=== PATIENT | male | born 1950 | race Caucasian/White ===

== ENCOUNTER 2018-06-08 17:06 | Observation (INO) ==
[2018-06-08] MEDS ORDERED: Nitroglycerin 0.4 MG TAB.SUBL SL PRN (17:28)
--- NOTE | 2018-06-08 17:33 | Emergency Department Note ---
Disposition Clinical Impression: Chest pain Qualifiers: Chest pain type: unspecified Qualified Code(s): R07.9 - Chest pain, unspecified Disposition: Admitted As Inpatient Condition: Fair Referrals: Ana Laura Pelayo [Primary Care Provider] - Forms: ED Satisfaction Letter General Adult HPI - General Chief complaint: ED Chest Pain Stated complaint: CP Time Seen by Provider: 06/08/18 17:20 Source: patient, family Mode of arrival: ambulatory Limitations: no limitations Nursing Notes Reviewed: Yes Vital Signs Reviewed: Yes - History of Present Illness HPI Narrative: 68-year-old male with significant past medical history of coronary artery disease with 10 stents and open heart surgery currently on full dose aspirin presenting to the emergency department chief complaint of chest pain. Patient states chest pain started yesterday after he dug a hole in his yard. He took 2 nitroglycerin and it resolved. This morning he woke up and started having chest pain again. He called his tape recording machine operator who suggested he come to the emergency department for further evaluation. At this time patient describes a substernal pressure that radiates across his chest. Denies any nausea, vomiting or diaphoresis. Patient denies any recent illnesses or fevers. States he is also had increased shortness of breath over the past 2-3 days with these symptoms. Denies any productive cough or sputum production. Patient did take full dose aspirin today. Pain Scale: 0 - Related Data Home Medications Medication Instructions Recorded Confirmed Albuterol Sulfate [Ventolin Hfa] 2 puff IH Q6H PRN 01/20/18 06/08/18 Amlodipine Besylate 10 mg PO DAILY 01/20/18 06/08/18 Aspirin 325 mg PO DAILY 01/20/18 06/08/18 Atorvastatin Calcium 80 mg PO DAILY 01/20/18 06/08/18 Esomeprazole Magnesium [Nexium] 40 mg PO DAILY 01/20/18 06/08/18 Ranolazine [Ranexa] 500 mg PO BID 01/20/18 06/08/18 Tamsulosin HCl [Flomax] 0.4 mg PO DAILY 01/20/18 06/08/18 Carvedilol [Coreg] 6.25 mg PO BID 06/08/18 06/08/18 Allergies Allergy/AdvReac Type Severity Reaction Status Date / Time ezetimibe AdvReac See Verified 07/03/18 07:46 Comments All systems ED: reviewed and negative except as stated. Constitutional: Denies: fever, chills, weakness Eyes: Reports: as per HPI ENT ED: Reports: as per HPI Cardiovascular: Reports: chest pain, dyspnea on exertion. Denies: palpitations Respiratory: Reports: dyspnea. Denies: cough, wheezes, hemoptysis Gastrointestinal: Denies: abdominal pain, nausea, vomiting Genitourinary: Reports: as per HPI Musculoskeletal: Reports: as per HPI Integumentary: Reports: as per HPI Neurological: Denies: weakness, numbness, paresthesias Psychiatric: Reports: as per HPI Endocrine: Reports: as per HPI Hematological/Lymphatic: Reports: as per HPI Allergic/Immunologic: Reports: as per HPI Past Medical History - Past Medical History Attestation: Yes The following information was validated with the patient. Medical history: Reports: cancer, cardiomyopathy, coronary artery disease, hypertension Surgical history: Reports: coronary bypass (CABG), pacemaker/AICD Psychiatric history: Reports: no psych history - Social History Smoking Status: Former smoker Smokeless Tobacco Status: No Alcohol use: Reports: rarely Physical Exam - General Limitations: no limitations General appearance: alert, in no apparent distress - Head Head exam: atraumatic, normocephalic, normal inspection - Eye Eye exam: Present: normal appearance. Absent: scleral icterus, conjunctival injection - ENT ENT exam: normal exam, mucous membranes moist - Neck Neck exam: Present: normal inspection, full ROM. Absent: tenderness, meningismus - Chest Chest inspection: Present: normal inspection, symmetric chest wall rise. Absent: tenderness, rash - Respiratory Respiratory exam: Present: normal lung sounds bilaterally. Absent: respiratory distress, wheezes, stridor - Cardiovascular Cardiovascular exam: Present: regular rate, normal rhythm, normal heart sounds - Abdominal Exam Abdominal exam: Present: soft, Non-Tender. Absent: distention, guarding, rebound - Extremities Exam Extremities exam: Present: normal inspection, full ROM - Neurological Exam Neurological exam: Present: alert, oriented X3 - Psychiatric Psychiatric exam: Present: normal affect, normal mood - Skin Skin exam: Present: warm, intact Course Course Narrative: 68-year-old male presenting for chest pain. Significant history of cardiac disease. In the room patient still complaining of mild substernal chest pressure. He is alert and oriented 3 and hemodynamically stable. At this time we will perform a chest pain workup including chest x-ray, troponin and EKG. We will provide the patient with sublingual nitroglycerin. Disposition will be admission pending results. Patient agrees with this plan. - Reevaluation(s) Reevaluation #1: All patient's laboratory analysis benign. Patient remains chest pain-free without any intervention. He is alert and oriented 3 and hemodynamically stable. At this time will plan to admit him for further chest pain workup. Patient agrees with this plan. Spoke with the hospitalist on-call who agrees to accept the patient at this time. Vital Signs Temperature 97.5 F L 06/08/18 17:12 Pulse Rate 81 06/08/18 17:12 Respiratory Rate 16 06/08/18 17:12 Blood Pressure 118/72 06/08/18 17:12 O2 Sat by Pulse Oximetry 97 06/08/18 17:12 Temperature 97.5 F L 06/08/18 17:29 Pulse Rate 60 06/08/18 18:17 Respiratory Rate 16 06/08/18 18:17 Blood Pressure 125/73 06/08/18 18:17 O2 Sat by Pulse Oximetry 98 06/08/18 18:17 Oxygen Delivery Oxygen Delivery Room Air Medical Decision Making - Lab Data Result diagrams: 06/08/18 17:32 06/08/18 17:32 Lab Results 06/08/18 06/08/18 Range/Units 17:32 17:32 WBC 6.7 (4.3-11.1) K/mcL RBC 4.93 (4.19-5.50) M/mcL Hgb 15.1 (12.9-16.9) g/dL Hct 43.8 (37.5-50.1) % MCV 88.8 (83.0-100.0) fL MCH 30.6 (28.0-33.3) pg MCHC 34.5 (31.6-35.5) g/dL RDW 13.0 (11.5-14.5) % Plt Count 228 (140-400) K/mcL MPV 10.0 (9.4-12.4) fL Immature Gran % 0.3 (0-4) % Seg Neutrophils % 51.0 % Lymphocytes % 35.0 % Monocytes % 10.6 % Eosinophils % 2.7 % Basophils % 0.4 % Neutrophils # 3.4 (1.6-8.9) K/mcL Lymphocytes # 2.4 (0.6-4.6) K/mcL Monocytes # 0.7 (0.0-1.3) K/mcL Eosinophils # 0.2 (0.0-0.6) K/mcL Basophils # 0.0 (0.0-0.2) K/mcL Sodium 139 (136-145) mEq/L Potassium 3.8 (3.5-5.1) mEq/L Chloride 105 (98-107) mEq/L Carbon Dioxide 24 (23-29) mEq/L BUN 12 (8-23) mg/dL Creatinine 0.92 (0.70-1.30) mg/dL Est GFR ( Amer) > 60 (> 60) Est GFR (Non-Af Amer) > 60 (> 60) BUN/Creatinine Ratio 13 (6-26) Glucose 92 (70-105) mg/dL Calculated Osmolality 287 (280-300) Calcium 9.2 (8.6-10.3) mg/dL Magnesium 2.3 (1.6-2.6) mg/dL Troponin I < 0.03 (< 0.04) ng/mL - EKG Data EKG #1 EKG attestation: Yes I reviewed and interpreted this EKG. EKG results narrative: Atrial paced. 80 beats for minute. OH interval 209, QRS 105, QTC 463. No sign of acute ST segment elevation or ischemia EKG #2 EKG attestation: Yes I reviewed and interpreted this EKG. EKG results narrative: Atrial paced. 80 beats for minute. OH interval 209, QRS 105, QTC 463. No sign of acute ST segment elevation or ischemia
--- NOTE | 2018-06-08 18:27 | Emergency Department Note ---
Disposition Clinical Impression: Chest pain Qualifiers: Chest pain type: chest pain due to myocardial ischemia Ischemic chest pain type: stable angina pectoris Qualified Code(s): I20.8 - Other forms of angina pectoris Disposition: Admitted As Inpatient Condition: Fair General Adult HPI - General Chief complaint: ED Chest Pain Stated complaint: CP Time Seen by Provider: 06/08/18 17:20 Source: patient, family Mode of arrival: ambulatory Limitations: no limitations - History of Present Illness Pain Scale: 0 - Related Data Home Medications Medication Instructions Recorded Confirmed RX: Albuterol Sulfate [Ventolin 2 puff IH Q6H PRN 01/20/18 06/08/18 Hfa] RX: Amlodipine Besylate 10 mg PO DAILY 01/20/18 06/08/18 RX: Aspirin 325 mg PO DAILY 01/20/18 06/08/18 RX: Atorvastatin Calcium 80 mg PO DAILY 01/20/18 06/08/18 RX: Esomeprazole Magnesium [Nexium] 40 mg PO DAILY 01/20/18 06/08/18 RX: Tamsulosin HCl [Flomax] 0.4 mg PO DAILY 01/20/18 06/08/18 RX: Carvedilol [Coreg] 6.25 mg PO BID 06/08/18 06/08/18 Previous Rx's Medication Instructions Recorded RX: Isosorbide MONOnitrate (24 HR) 30 mg PO DAILY 30 Days tab.er.24h 06/09/18 [Imdur] RX: Nitroglycerin 0.4 mg SL Q5MIN PRN 30 Days 06/09/18 tab.subl RX: Ranolazine [Ranexa] 1,000 mg PO BID #60 tab.er.12h 06/09/18 Allergies Allergy/AdvReac Type Severity Reaction Status Date / Time ezetimibe AdvReac See Verified 01/20/18 07:46 Comments Constitutional: Denies: fever, chills, weakness Eyes: Reports: as per HPI ENT ED: Reports: as per HPI Cardiovascular: Reports: chest pain, dyspnea on exertion. Denies: palpitations Respiratory: Reports: dyspnea. Denies: cough, wheezes, hemoptysis Gastrointestinal: Denies: abdominal pain, nausea, vomiting Genitourinary: Reports: as per HPI Musculoskeletal: Reports: as per HPI Integumentary: Reports: as per HPI Neurological: Denies: weakness, numbness, paresthesias Psychiatric: Reports: as per HPI Endocrine: Reports: as per HPI Hematological/Lymphatic: Reports: as per HPI Allergic/Immunologic: Reports: as per HPI Past Medical History - Past Medical History Medical history: Reports: cancer, cardiomyopathy, coronary artery disease, hypertension Surgical history: Reports: coronary bypass (CABG), pacemaker/AICD Psychiatric history: Reports: no psych history - Social History Smoking Status: Former smoker Smokeless Tobacco Status: No Alcohol use: Reports: rarely Drug use: Reports: none Physical Exam - General Limitations: no limitations General appearance: alert, in no apparent distress Course Vital Signs Temperature 97.5 F L 06/08/18 17:12 Pulse Rate 81 06/08/18 17:12 Respiratory Rate 16 06/08/18 17:12 Blood Pressure 118/72 06/08/18 17:12 O2 Sat by Pulse Oximetry 97 06/08/18 17:12 Temperature 97.4 F L 06/09/18 11:43 Pulse Rate 61 06/09/18 11:43 Respiratory Rate 16 06/09/18 11:43 Blood Pressure 130/73 06/09/18 11:43 O2 Sat by Pulse Oximetry 96 06/09/18 11:43 Oxygen Delivery Oxygen Delivery Room Air Medical Decision Making - Lab Data Result diagrams: 06/09/18 00:17 06/09/18 00:17 Lab Results 06/08/18 06/08/18 Range/Units 17:32 17:32 WBC 6.7 (4.3-11.1) K/mcL RBC 4.93 (4.19-5.50) M/mcL Hgb 15.1 (12.9-16.9) g/dL Hct 43.8 (37.5-50.1) % MCV 88.8 (83.0-100.0) fL MCH 30.6 (28.0-33.3) pg MCHC 34.5 (31.6-35.5) g/dL RDW 13.0 (11.5-14.5) % Plt Count 228 (140-400) K/mcL MPV 10.0 (9.4-12.4) fL Immature Gran % 0.3 (0-4) % Seg Neutrophils % 51.0 % Lymphocytes % 35.0 % Monocytes % 10.6 % Eosinophils % 2.7 % Basophils % 0.4 % Neutrophils # 3.4 (1.6-8.9) K/mcL Lymphocytes # 2.4 (0.6-4.6) K/mcL Monocytes # 0.7 (0.0-1.3) K/mcL Eosinophils # 0.2 (0.0-0.6) K/mcL Basophils # 0.0 (0.0-0.2) K/mcL Sodium 139 (136-145) mEq/L Potassium 3.8 (3.5-5.1) mEq/L Chloride 105 (98-107) mEq/L Carbon Dioxide 24 (23-29) mEq/L BUN 12 (8-23) mg/dL Creatinine 0.92 (0.70-1.30) mg/dL Est GFR ( Amer) > 60 (> 60) Est GFR (Non-Af Amer) > 60 (> 60) BUN/Creatinine Ratio 13 (6-26) Glucose 92 (70-105) mg/dL Calculated Osmolality 287 (280-300) Calcium 9.2 (8.6-10.3) mg/dL Magnesium 2.3 (1.6-2.6) mg/dL Troponin I < 0.03 (< 0.04) ng/mL Attestation Statement - Attestation Attestation: I examined this patient and my medical decision-making was reviewed with the Resident Physician. I agree with the documented findings, disposition and treatment plan as described except to the extent set forth below. 68-year-old male with a history of 10 stents and previous open heart surgery p resented to the ER for chest pain that started yesterday after digging a hole in his yard. Patient had return of his chest pain today. He is currently chest pain-free. He has no active chest pain at this time. Aspirin was already taken. His EKG does not show any significant findings. Patient will need to be admitted for ACS observation due to his significant history of 10 stents. Patient's chest x-ray showed either a left-sided basilar effusion versus infiltrate. Labs said they lost the blood work and the tube system. Some not really sure where the patient's blood work is at this time. We will have lab come up and redraw him.
[2018-06-08 18:46] LABS: Basophils % 0.4 %; Eosinophils # 0.2 K/mcL (0.0-0.6); Eosinophils % 2.7 %; Hematocrit 43.8 % (37.5-50.1); Hemoglobin 15.1 g/dL (12.9-16.9); Immature Granulocytes % 0.3 % (0-4); Lymphocytes # 2.4 K/mcL (0.6-4.6); Mean Corpuscular HGB Conc 34.5 g/dL (31.6-35.5); Mean Corpuscular Hemoglobin 30.6 pg (28.0-33.3); Mean Corpuscular Volume 88.8 fL (83.0-100.0); Monocytes # 0.7 K/mcL (0.0-1.3); Monocytes % 10.6 %; Neutrophils # 3.4 K/mcL (1.6-8.9); Platelet Count 228 K/mcL (140-400); Red Blood Count 4.93 M/mcL (4.19-5.50)
[2018-06-08 18:59] LABS: BUN/Creatinine Ratio 13 (6-26); Blood Urea Nitrogen 12 mg/dL (8-23); Calcium 9.2 mg/dL (8.6-10.3); Carbon Dioxide 24 mEq/L (23-29); Chloride 105 mEq/L (98-107); Glucose 92 mg/dL (70-105); Magnesium 2.3 mg/dL (1.6-2.6); Osmolality,Calculated 287 (280-300); Potassium 3.8 mEq/L (3.5-5.1); Sodium 139 mEq/L (136-145); Troponin I < 0.03 ng/mL (< 0.04); eGFR For Non-African Americans > 60 (> 60)
[2018-06-08] MEDS ORDERED: Naloxone 0.4 MG/ML INJ IVP PRN (21:20)
[2018-06-08] MEDS ORDERED: Acetaminophen 325 MG TABLET PO PRN (21:26)
[2018-06-08] MEDS ORDERED: *HR* Morphine 2 MG/ML SYRINGE IVP PRN (21:26)
--- NOTE | 2018-06-08 22:49 | Internal Med History&Physical ---
Date of Encounter: 06/08/18 Time of Encounter: 20:05 Internal Medicine - H&P: HPI Chief complaint: chest pain Admitted From: Emergency Dept Plans for Post Hospital Care: Home History of present illness: Mr. Isaacs is a 68 year old male who presents with complaints of chest pain this evening. He called his wedding transportation driver who recommended he come to ER right away for evaluation and admission. He took some nitroglycerin at home prior to arrival to the ER. By the time he arrived at the ER, chest pain was almost resolved. Workup was negative, but given his extensive cardiac history and presenting symptoms, he was admitted to hospitalist service. Upon my assessment of the patient in the ER, he remains chest pain-free. He denies any dyspnea or diaphoresis. He admits to having had chest with exertion chronically. However, today's episode was much more severe and was initially unresponsive to nitroglycerin. He took several doses of nitroglycerin to relieve his chest pain. He has extensive coronary artery disease. He has had prior CABG and has had several cardiac stents since his CABG. His last interven tion, however, was about 10 years ago. He does have a pacemaker/AICD which was recently replaced within the past year. Past Med Surg Social Fam HX - Past Medical History Attestation: Yes The following information was validated with the patient. Source: patient, old records reviewed, obtained from family Medical history: cancer, cardiomyopathy, coronary artery disease, hypertension Additional medical history: lung cancer, Psychiatric history: no psych history - Past Surgical History Surgical History: angioplasty/stent, coronary bypass (CABG), pacemaker/AICD Additional surgical history: parital lung resection for lung cancer - Social History Smoking Status: Former smoker Smokeless Tobacco Status: No Alcohol use: rarely Drug use: none Current living situation: Home, With Family Activity Level: Independent ambulation Recent Out of Country Travel Within the Last 8 Weeks: No - Family History Father Living Status: Age at : 51 Cause of : [place] Hx Family Cardiac Disorders: Yes ([place]) Mother Living Status: Age at : 66 Cause of : Stroke Hx Family Respiratory Disorders: Yes (asthma) Hx Family Neurologic Disorders: Yes (stroke) Internal Medicine - H&P: Meds Albuterol Sulfate [Ventolin Hfa] 2 puff IH Q6H PRN 01/20/18 [History] Amlodipine Besylate 10 mg PO DAILY 01/20/18 [History] Aspirin 325 mg PO DAILY 01/20/18 [History] Atorvastatin Calcium 80 mg PO DAILY 01/20/18 [History] Esomeprazole Magnesium [Nexium] 40 mg PO DAILY 01/20/18 [History] Ranolazine [Ranexa] 500 mg PO BID 01/20/18 [History] Tamsulosin HCl [Flomax] 0.4 mg PO DAILY 01/20/18 [History] Carvedilol [Coreg] 6.25 mg PO BID 06/08/18 [History] Allergy/AdvReac Type Severity Reaction Status Date / Time ezetimibe AdvReac See Verified 01/20/18 07:46 Comments - Constitutional Constitutional: no chills, no fever(s), no night sweats - EENT Eyes: no blurry vision, no change in vision Ears: no ear pain, no tinnitus Nose, mouth and throat: no nasal congestion, no sinus pressure, no sore throat - Cardiovascular Cardiovascular ROS IM: chest pain, dyspnea, dyspnea on exertion, no diaphoresis, no orthopnea, no paroxysmal nocturnal dyspnea - Respiratory Respiratory: no cough, no hemoptysis, no chest congestion, no excessive phlegm production, no change in phlegm color - Gastrointestinal Gastrointestinal: no abdominal pain, no diarrhea, no hematemesis, no hematochezia, no melena, no nausea, no vomiting - Genitourinary Genitourinary ROS male: no dysuria, no flank pain, no hematuria - Musculoskeletal Musculoskeletal ROS IM: no arthralgias, no back pain - Integumentary Integumentary IM: no rash, no jaundice - Neurological Neurological ROS: no disequilibrium, no dizziness, no focal weakness, no frequent falls, no headache(s) - Psychiatric Psychiatric: no anxiety, no depression - Endocrine Endocrine IM: no polydipsia, no polyuria - Allergic/Immunologic Allergic/Immunologic: no wheezing, no GI upset with certain foods - Constitutional Vitals: Temp Pulse Resp BP Pulse Ox 97.6 F 64 16 136/70 97 06/08/18 20:38 06/08/18 20:38 06/08/18 20:38 06/08/18 20:38 06/08/18 20:38 General appearance: Present: cooperative, A&O X 3, pleasant, no acute distress, answers questions appropriately Exam: currently chest pain free - Head Head exam: Present: atraumatic, normal inspection - Eye Eye exam: Present: EOMI, PERRL. Absent: scleral icterus Pupils: Present: normal accommodation - ENT ENT exam: Present: mucous membranes dry, normal exam, normal oropharynx - Neck Neck exam general surgery: Present: full ROM, supple. Absent: tenderness, nuchal rigidity, thyromegaly - Respiratory Respiratory exam: Present: CTAB. Absent: chest wall tenderness, rales, respiratory distress, rhonchi, wheezes - Cardiovascular Cardiovascular exam: Present: distant heart sounds, RRR, +S1, +S2, systolic murmur (grade 2 ). Absent: diastolic murmur - GI/Abdominal GI/Abdominal exam: Present: normal bowel sounds, soft. Absent: hepatomegaly, mass, splenomegaly, tenderness - Extremities Exam Extremities exam: Present: normal capillary refill, warm, radial pulses palpable and symmetrical. Absent: calf tenderness, pedal edema, tenderness - Back Exam Back exam: Present: normal inspection. Absent: CVA tenderness (L), CVA tenderness (R) - Neurological Exam Neurological exam: Present: alert, CN II-XII intact, oriented X3, no focal deficits, strengths equal and symetr throughout - Psychiatric Psychiatric exam: Present: normal affect, normal mood - Skin Skin exam: Present: dry, intact, warm Internal Med - H&P Results - Labs CBC & Chem 7: 06/08/18 17:32 06/08/18 17:32 Labs: Short CBC 06/08/18 Range/Units 17:32 WBC 6.7 (4.3-11.1) K/mcL Hgb 15.1 (12.9-16.9) g/dL Hct 43.8 (37.5-50.1) % Plt Count 228 (140-400) K/mcL Neutrophils # 3.4 (1.6-8.9) K/mcL BMP 06/08/18 17:32 Sodium 139 Potassium 3.8 Chloride 105 Carbon Dioxide 24 BUN 12 Creatinine 0.92 Glucose 92 Calcium 9.2 Cardiac Enzymes 06/08/18 Range/Units 17:32 Troponin I < 0.03 (< 0.04) ng/mL - EKG Data -: EKG Interpreted by Myself - EKG Data EKG comments: 06/08/18 22:58 AV paced rhythm - Impressions ITS Impressions Chest X-Ray 06/08/18 17:20 IMPRESSION: Possible left basilar atelectasis or pneumonia. PA and lateral chest radiographs may be considered for further assessment. D/ / Gerardo Barger MD / Gerardo Barger MD Interpreting Provider: Gerardo Barger MD - Diagnostic Studies Chest x-ray Status: image reviewed by me (large heart; suspect atelectasis in left lower lung field) - Assessment and plan (1) Chest pain Current Visit: Yes Status: Acute Assessment and plan: 1. Will trend troponins, EKG's, and order ECHO. 2. Consult cardiology given his extensive CAD history. 3. NTG and Morphine PRN chest pain. Qualifiers: Chest pain type: chest pain due to myocardial ischemia Ischemic chest pain type: stable angina pectoris Qualified Code(s): I20.8 - Other forms of angina pectoris (2) CAD (coronary artery disease) Current Visit: Yes Status: Chronic Assessment and plan: 1. Continue home meds as appropriate. 2. Work up and cardiology consult as above. Qualifiers: Coronary Disease-Associated Artery/Lesion type: [place] artery [place] vs. transplanted heart: [place] heart Associated angina: with stable angina Qualified Code(s): I25.118 - Atherosclerotic heart disease of [place] coronary artery with other forms of angina pectoris (3) Atelectasis of left lung Current Visit: Yes Status: Acute Assessment and plan: 1. Will order 2 view CXR to further evaluate. 2. No respiratory or infectious symptoms appreciated. (4) DVT prophylaxis Current Visit: Yes Status: Acute Assessment and plan: 1. Heparin SQ.
[2018-06-08] MEDS: *HR* Heparin 5,000 UNIT/ML VIAL SQ SCH (23:22)
[2018-06-09 00:53] LABS: Basophils % 0.5 %; Eosinophils # 0.2 K/mcL (0.0-0.6); Eosinophils % 3.4 %; Hematocrit 43.4 % (37.5-50.1); Hemoglobin 14.4 g/dL (12.9-16.9); Immature Granulocytes % 0.2 % (0-4); Lymphocytes % 33.1 %; Mean Corpuscular HGB Conc 33.2 g/dL (31.6-35.5); Mean Corpuscular Hemoglobin 30.3 pg (28.0-33.3); Mean Corpuscular Volume 91.2 fL (83.0-100.0); Mean Platelet Volume 10.1 fL (9.4-12.4); Monocytes # 0.7 K/mcL (0.0-1.3); Monocytes % 11.3 %; Neutrophils # 3.1 K/mcL (1.6-8.9); Platelet Count 211 K/mcL (140-400); Red Blood Count 4.76 M/mcL (4.19-5.50); Red Cell Distribution Width 12.9 % (11.5-14.5); Segmented Neutrophils % 51.5 %
[2018-06-09 01:02] LABS: INR 1.1; Prothrombin Time 12.2 Seconds (9.4-12.1)
[2018-06-09 01:04] LABS: Activated Partial Thrombo Time 31.1 Seconds (26.0-36.0)
[2018-06-09 01:10] LABS: Alanine Aminotransferase 12 Units/L (7-52); Albumin 3.4 g/dL (3.5-5.7); Albumin/Globulin Ratio 1.1 (1.1-2.2); Alkaline Phosphatase 130 Units/L (34-104); Aspartate Amino Transferase 12 Units/L (13-39); BUN/Creatinine Ratio 13 (6-26); Bilirubin,Total 0.6 mg/dL (0.3-1.0); Blood Urea Nitrogen 12 mg/dL (8-23); Calcium 8.5 mg/dL (8.6-10.3); Carbon Dioxide 26 mEq/L (23-29); Chloride 106 mEq/L (98-107); Chol/HDL Ratio 3.2 (0-4.9); Cholesterol 106 mg/dL (< 200); Glucose 136 mg/dL (70-105); HDL Cholesterol 33 mg/dL (40-59); LDL Cholesterol,Calculated 55 mg/dL (0-99); Magnesium 2.1 mg/dL (1.6-2.6); Osmolality,Calculated 290 (280-300); Potassium 3.3 mEq/L (3.5-5.1); Sodium 139 mEq/L (136-145); Total Protein 6.4 g/dL (6.4-8.9); Triglycerides 92 mg/dL (< 150); eGFR For Non-African Americans > 60 (> 60)
[2018-06-09] MEDS: *HR* Heparin 5,000 UNIT/ML VIAL SQ SCH (06:08)
--- NOTE | 2018-06-09 07:45 | Internal Med Progress Note ---
Hospitalist Progress Note - Encounter Date of Encounter: 06/09/18 Time of Encounter: 07:44 - Exam Vitals: Temp Pulse Resp BP Pulse Ox 97.9 F 63 16 122/62 95 06/09/18 03:58 06/09/18 03:58 06/09/18 03:58 06/09/18 03:58 06/09/18 03:58 - Assessment and Plan (1) Chest pain Current Visit: Yes Status: Acute (2) CAD (coronary artery disease) Current Visit: Yes Status: Chronic (3) DVT prophylaxis Current Visit: Yes Status: Acute (4) Atelectasis of left lung Current Visit: Yes Status: Acute - Time Spent with Patient Total time spent is greater than 50% in coordination of care (as documented) at patient's floor/unit and/or counseling patient: Internal Medicine: Result - Labs CBC & Chem 7: 06/09/18 00:17 06/09/18 00:17 Labs: Short CBC 06/08/18 06/09/18 Range/Units 17:32 00:17 WBC 6.7 6.0 (4.3-11.1) K/mcL Hgb 15.1 14.4 (12.9-16.9) g/dL Hct 43.8 43.4 (37.5-50.1) % Plt Count 228 211 (140-400) K/mcL Neutrophils # 3.4 3.1 (1.6-8.9) K/mcL BMP 06/08/18 06/09/18 17:32 00:17 Sodium 139 139 Potassium 3.8 3.3 L Chloride 105 106 Carbon Dioxide 24 26 BUN 12 12 Creatinine 0.92 0.89 Glucose 92 136 H Calcium 9.2 8.5 L Cardiac Enzymes 06/08/18 06/09/18 06/09/18 Range/Units 17:32 00:17 05:26 Troponin I < 0.03 < 0.03 < 0.03 (< 0.04) ng/mL Liver Function 06/09/18 Range/Units 00:17 Total Bilirubin 0.6 (0.3-1.0) mg/dL AST 12 L (13-39) Units/L ALT 12 (7-52) Units/L Alkaline Phosphatase 130 H (34-104) Units/L Albumin 3.4 L (3.5-5.7) g/dL - ABG Interpretation ABG results: PT/INR, D-dimer PT 12.2 Seconds (9.4-12.1) H 06/09/18 00:17 - Impressions Impressions Chest X-Ray 06/08/18 17:20 IMPRESSION: Possible left basilar atelectasis or pneumonia. PA and lateral chest radiographs may be considered for further assessment. D/ / Gerardo Barger MD / Gerardo Barger MD Interpreting Provider: Gerardo Barger MD Consult Discharge Plan - Plan Referrals: Ana Laura Pelayo [Primary Care Provider] - (1) Chest pain Qualifiers: Chest pain type: chest pain due to myocardial ischemia Ischemic chest pain type: stable angina pectoris Qualified Code(s): I20.8 - Other forms of angina pectoris (2) CAD (coronary artery disease) Qualifiers: Coronary Disease-Associated Artery/Lesion type: [place] artery [place] vs. transplanted heart: [place] heart Associated angina: with stable angina Qualified Code(s): I25.118 - Atherosclerotic heart disease of [place] coronary artery with other forms of angina pectoris
[2018-06-09] MEDS ORDERED: Aspirin 325 MG TABLET PO SCH (09:00)
[2018-06-09] MEDS ORDERED: amLODIPine 5 MG TABLET PO SCH (09:00)
[2018-06-09] MEDS ORDERED: Ranolazine 500 MG TAB.ER.12H PO SCH ×2 (09:00→21:00)
--- NOTE | 2018-06-09 09:45 | Cardiology Consult Note ---
<Arnulfo Leavitt R - Last Filed: 06/09/18 09:45> Date of Encounter: 06/09/18 Time of Encounter: 09:44 Assessment and Plan (1) Chest pain Current Visit: Yes Status: Acute Chronic exertional chest pain since CABG in 2007. Presented to ED due to episode of dyspnea while digging. Developed chest pain when he went inside, sharp, eventual relief with 2 SL nitro. Troponins negative x 3. ECG paced, no ischemic changes. CXR possible left basilar atelectasis or pneumonia. PA and lateral ordered for further assessment. TTE 04/2017 EF 50%. Nuclear stress test 04/2017: Perfusion defects are present. Bowel attenuation artifact obscures interpretation of inferior wall. Unable to exclude ischemia in this area. Gated EF 45%. I discussed options with pt including LHC vs medical management. R/B/A discussed. He prefers medical management with close outpt follow-up. Reasonable, given negative troponins, CP is reported as chronic and CXR findings could explain his dyspnea. On Ranexa 500mg BID. Will increase to 1000mg BID and add Imdur 30mg daily. I will discuss and review with Dr. Wallace. Anticipate sign off once seen and examined by her. Qualifiers: Chest pain type: chest pain due to myocardial ischemia Ischemic chest pain type: stable angina pectoris Qualified Code(s): I20.8 - Other forms of angina pectoris (2) Ischemic cardiomyopathy Current Visit: Yes Status: Acute Hx of ICMP s/p ICD. EF since recovered, 50% on TTE 04/2017. Device interrogation 06/03/18 no events, functioning normal. (3) CAD (coronary artery disease) Current Visit: Yes Status: Chronic Hx of CAD s/p 4V CABG in 2007 at [facility] and reported subsequent PCI in 2008. Continue ASA, Statin, BB, nitrates. Qualifiers: Coronary Disease-Associated Artery/Lesion type: [place] artery [place] vs. tr ansplanted heart: [place] heart Associated angina: with stable angina Qualified Code(s): I25.118 - Atherosclerotic heart disease of [place] coronary artery with other forms of angina pectoris (4) Atelectasis of left lung Current Visit: Yes Status: Acute CXR possible left basilar atelectasis or pneumonia. PA and lateral CXR ordered by primary team for further assessment. Hx of lung cancer s/p wedge resection within the past year. Management per primary team. Discussion w patient/family: The assessment and plan as outlined above was discussed with the patient and/or family members who expressed understanding and agreement. All questions were answered. Thank you for involving us in the care of your patient. Please call with any questions. I will discuss and review with Dr. Wallace and make changes as necessary. History of Present Illness Consult date: 06/09/18 Requesting physician: Pj Beatty Consult reason: chest pain, dyspnea Chief complaint: chest pain, dyspnea History of present illness: Mr. Isaacs is a 68 year old male with PMH of CAD s/p 4V CABG in 2007, PCI in 2008, systolic CHF/ICMP s/p ICD insertion--EF since recovered, HTN, HLD, prior tobacco abuse, lung ca s/p wedge resection that presented with complaints of chest pain dyspnea. He was seen by Dr. Sweet, his central sterile tech yesterday, who recommended he come to ER. Pt reports he was digging yesterday and became very short of breath. He went in the house and developed sharp midsternal chest pain and took 2 nitro with eventual relief. He admits to having chronic exertional chest pain since CABG, but the dyspnea he experienced yesterday was out of the ordinary for him. Cardiology consulted for further recs. Troponins negative x 3. ECG unchanged from previous. CXR possible left basilar atelectasis or pneumonia. PA and lateral chest radiographs may be considered for further assessment. Prior CV testing: TTE 05/16/17: LVEF 50%. Normal LV chamber size, wall thickness and function. Normal right ventricular structure and function. Mild-moderate mitral regurgitation. No evidence of pulmonary hypertension. A device lead was visualized in the right atrium and right ventricle. Nuclear stress test 05/16/17: Perfusion defects are present. Bowel attenuation artifact obscures interpretation of inferior wall. Unable to exclude ischemia in this area. Gated EF 45%. ICD interrogation 06/03/18: Remote monitoring of the device shows that all measurements are appropriate. NO events. Patient is scheduled for follow up in 3 months, 09/08. Battery Longevity 9.8 years. Past Med Surg Social Fam HX - Past Medical History Medical history: cancer, cardiomyopathy, coronary artery disease, hypertension Additional medical history: lung cancer, Psychiatric history: no psych history - Past Surgical History Surgical History: angioplasty/stent, coronary bypass (CABG), pacemaker/AICD Additional surgical history: parital lung resection for lung cancer - Social History Smoking Status: Former smoker Smokeless Tobacco Status: No Alcohol use: rarely Drug use: none - Family History Father Living Status: Age at : 51 Cause of : [place] Hx Family Cardiac Disorders: Yes ([place]) Mother Living Status: Age at : 66 Cause of : Stroke Hx Family Respiratory Disorders: Yes (asthma) Hx Family Neurologic Disorders: Yes (stroke) Medications and Allergies Albuterol Sulfate [Ventolin Hfa] 2 puff IH Q6H PRN 01/20/18 [History] Amlodipine Besylate 10 mg PO DAILY 01/20/18 [History] Aspirin 325 mg PO DAILY 01/20/18 [History] Atorvastatin Calcium 80 mg PO DAILY 01/20/18 [History] Esomeprazole Magnesium [Nexium] 40 mg PO DAILY 01/20/18 [History] Ranolazine [Ranexa] 500 mg PO BID 01/20/18 [History] Tamsulosin HCl [Flomax] 0.4 mg PO DAILY 01/20/18 [History] Carvedilol [Coreg] 6.25 mg PO BID 06/08/18 [History] Allergy/AdvReac Type Severity Reaction Status Date / Time ezetimibe AdvReac See Verified 01/20/18 07:46 Comments All Systems Review: The remainder of the systems were reviewed and are negative - Cardiovascular Cardiovascular: as per HPI, chest pain with exertion, dyspnea on exertion - Respiratory Respiratory: dyspnea Physical Examination Vital Signs, Last 4 Hours Temp Pulse Resp BP Pulse Ox 06/09/18 08:03 97.8 F 66 18 127/76 95 Vital Signs Temp Pulse Resp BP Pulse Ox 06/09/18 08:03 97.8 F 66 18 127/76 95 06/09/18 03:58 97.9 F 63 16 122/62 95 06/08/18 23:11 97.8 F 59 16 122/60 93 06/08/18 20:38 97.6 F 64 16 136/70 97 06/08/18 19:56 60 16 125/73 98 06/08/18 18:17 60 16 125/73 98 06/08/18 17:29 97.5 F L 62 16 130/86 100 06/08/18 17:12 97.5 F L 81 16 118/72 97 Intake and Output 06/08/18 06/09/18 06/09/18 23:59 07:59 15:59 Other: Meal npo Weight 85.1 kg 85.3 kg Patient Weight 06/09/18 23:59 Weight 85.3 kg General: Conversant, No Apparent Distress HEENT: Atraumatic, Normocephaly, Mucus Membranes Moist Neck: No JVD, Normal carotid pulses Cardiac: Reg Rate and Rhythm, Normal S1 and S2, No Murmur Lungs: Other (diminished) Neuro: Alert and responsive, No focal deficits noted Abdomen: Soft, Non-Tender Skin: No rashes noted on visualized skin Musculoskeletal: No Chest Wall Tenderness Extremities: No Clubbing, No Cyanosis, No Edema, Normal Pulses Results 06/09/18 00:17 06/09/18 00:17 Lab Results 06/08/18 06/08/18 06/09/18 17:32 17:32 00:17 WBC 6.7 Hgb 15.1 Hct 43.8 Plt Count 228 INR APTT Sodium 139 Potassium 3.8 Chloride 105 Carbon Dioxide 24 BUN 12 Creatinine 0.92 Glucose 92 Calcium 9.2 Magnesium 2.3 Total Bilirubin AST ALT Alkaline Phosphatase Troponin I < 0.03 < 0.03 06/09/18 06/09/18 06/09/18 00:17 00:17 00:17 WBC 6.0 Hgb 14.4 Hct 43.4 Plt Count 211 INR 1.1 APTT 31.1 Sodium 139 Potassium 3.3 L Chloride 106 Carbon Dioxide 26 BUN 12 Creatinine 0.89 Glucose 136 H Calcium 8.5 L Magnesium 2.1 Total Bilirubin 0.6 AST 12 L ALT 12 Alkaline Phosphatase 130 H Troponin I 06/09/18 05:26 WBC Hgb Hct Plt Count INR APTT Sodium Potassium Chloride Carbon Dioxide BUN Creatinine Glucose Calcium Magnesium Total Bilirubin AST ALT Alkaline Phosphatase Troponin I < 0.03 Short CBC 06/09/18 06/08/18 Range/Units 00:17 17:32 WBC 6.0 6.7 (4.3-11.1) K/mcL Hgb 14.4 15.1 (12.9-16.9) g/dL Hct 43.4 43.8 (37.5-50.1) % Plt Count 211 228 (140-400) K/mcL Neutrophils # 3.1 3.4 (1.6-8.9) K/mcL BMP 06/09/18 06/08/18 Range/Units 00:17 17:32 Sodium 139 139 (136-145) mEq/L Potassium 3.3 L 3.8 (3.5-5.1) mEq/L Chloride 106 105 (98-107) mEq/L Carbon Dioxide 26 24 (23-29) mEq/L BUN 12 12 (8-23) mg/dL Creatinine 0.89 0.92 (0.70-1.30) mg/dL Glucose 136 H 92 (70-105) mg/dL Calcium 8.5 L 9.2 (8.6-10.3) mg/dL Cardiac Enzymes 06/09/18 06/09/18 06/08/18 Range/Units 05:26 00:17 17:32 Troponin I < 0.03 < 0.03 < 0.03 (< 0.04) ng/mL Liver Function 06/09/18 Range/Units 00:17 Total Bilirubin 0.6 (0.3-1.0) mg/dL AST 12 L (13-39) Units/L ALT 12 (7-52) Units/L Alkaline Phosphatase 130 H (34-104) Units/L Albumin 3.4 L (3.5-5.7) g/dL Impressions Chest X-Ray 06/08/18 17:20 IMPRESSION: Possible left basilar atelectasis or pneumonia. PA and lateral chest radiographs may be considered for further assessment. D/ / Gerardo Barger MD / Gerardo Barger MD Interpreting Provider: Gerardo Barger MD Active Medications Acetaminophen (Tylenol) 650 mg PO Q6HR PRN PRN Reason: Mild Pain/Fever Stop: 12/08/18 21:27 Albuterol Sulfate (Albuterol Inhaler) 2 puff IH Q6H PRN PRN Reason: Dyspnea Stop: 12/08/18 21:34 Amlodipine Besylate (Norvasc) 10 mg PO DAILY [facility] Stop: 12/09/18 09:01 Last Admin: 06/09/18 08:38 Dose: 10 mg Aspirin (Aspirin) 325 mg PO DAILY [facility] Stop: 12/09/18 09:01 Last Admin: 06/09/18 08:38 Dose: 325 mg Atorvastatin Calcium (Lipitor) 80 mg PO DAILY [facility] Stop: 12/09/18 09:01 Last Admin: 06/09/18 08:38 Dose: 80 mg Carvedilol (Coreg) 6.25 mg PO BIDWM [facility]; Protocol Stop: 12/09/18 08:01 Last Admin: 06/09/18 08:39 Dose: 6.25 mg Heparin Sodium (Porcine) (Heparin) 5,000 unit SQ Q8HCO [facility] Stop: 12/08/18 22:01 Last Admin: 06/09/18 06:08 Dose: 5,000 unit Morphine Sulfate (Morphine Sulfate) 2 mg IVP Q3H PRN; Protocol PRN Reason: Chest Pain Stop: 12/08/18 21:27 Naloxone HCl (Narcan) 0.4 mg IVP Q2MIN PRN PRN Reason: SEE COMMENTS Stop: 12/08/18 21:21 Nitroglycerin (Nitroglycerin) 0.4 mg SL Q5MIN PRN PRN Reason: Chest Pain Stop: 12/08/18 17:29 Omeprazole (Prilosec) 40 mg PO 0630 [facility] Stop: 12/09/18 06:31 Last Admin: 06/09/18 06:09 Dose: 40 mg Ranolazine (Ranexa) 500 mg PO BID [facility] Stop: 12/09/18 09:01 Last Admin: 06/09/18 08:38 Dose: 500 mg Tamsulosin HCl (Flomax) 0.4 mg PO HS [facility]; Protocol Stop: 12/09/18 21:01 - Imaging and Cardiology Stress Test: report reviewed Echo: report reviewed - EKG Interpretation EKG results cardiology: personally reviewed, other (12 hr tele AVG HR 61, paced) Consult Discharge Plan - Plan Referrals: Ana Laura Pelayo [Primary Care Provider] - <Marcelina Wallace - Last Filed: 06/09/18 10:58> Date of Encounter: 06/09/18 - Attending Attestation I examined this patient and my medical decision-making was reviewed with the AUDITING MANAGER. I agree with the documented findings, disposition and treatment plan as described. Mr. Isaacs was sent from his Cardiologists office yesterday due to concern for recent CP and SOB. Patient reports chronic exertional chest pain. Two days ago was digging outside and had similar chest pain unchanged from his usual symptoms but also with profound SOB. When he saw Dr. Sweet yesterday, he was sent to the ER. Patient denies any further symptoms while hospitalized. AAOx3, conversant, NAD at the bedside Vital signs stable Exam without cardiac murmur, no LE edema, Lung sounds clear Labs demonstrate negative troponin x3 ECG demonstrates no new changes when compared with prior CXR shows left basilar atelectasis vs pneumonia Impression: 1. Chest pain: Patient reports that symptoms of chest pain he experienced on Friday were normal for him and not out of the ordinary. By description it appears to be stable exertional angina. His troponins have been negative. ECG without new or acute findings. Discussed options for ischemic evaluation. He would like to follow up with Dr. Sweet in the outpatient setting. Continue me dical management. AUDITING MANAGER increased Ranexa and added Imdur. Continue asa, statin, BB. Please provide Rx SL NTG prn at discharge. 2. SOB: Patient's main concern is in regard to the profound SOB he developed while digging. CXR suggests developing pneumonia. This could explain patient's symptoms. He has a PA/Lat CXR ordered. Will defer to Hospitalist. He is presently feeling well. Follow up with Dr. Umair Sweet is recommended. Will sign off. Please call with questions. Assessment and Plan Discussion w patient/family: The assessment and plan as outlined above was discussed with the patient and/or family members who expressed understanding and agreement. All questions were answered. Thank you for involving us in the care of your patient. Please call with any questions. History of Present Illness History of present illness: Mr. Isaacs is a 68 year old male All Systems Review: The remainder of the systems were reviewed and are negative Physical Examination Vital Signs, Last 4 Hours Temp Pulse Resp BP Pulse Ox 06/09/18 08:03 97.8 F 66 18 127/76 95 Results 06/09/18 00:17 06/09/18 00:17 Lab Results 06/08/18 06/08/18 06/09/18 17:32 17:32 00:17 WBC 6.7 Hgb 15.1 Hct 43.8 Plt Count 228 INR APTT Sodium 139 Potassium 3.8 Chloride 105 Carbon Dioxide 24 BUN 12 Creatinine 0.92 Glucose 92 Calcium 9.2 Magnesium 2.3 Total Bilirubin AST ALT Alkaline Phosphatase Troponin I < 0.03 < 0.03 06/09/18 06/09/18 06/09/18 00:17 00:17 00:17 WBC 6.0 Hgb 14.4 Hct 43.4 Plt Count 211 INR 1.1 APTT 31.1 Sodium 139 Potassium 3.3 L Chloride 106 Carbon Dioxide 26 BUN 12 Creatinine 0.89 Glucose 136 H Calcium 8.5 L Magnesium 2.1 Total Bilirubin 0.6 AST 12 L ALT 12 Alkaline Phosphatase 130 H Troponin I 06/09/18 05:26 WBC Hgb Hct Plt Count INR APTT Sodium Potassium Chloride Carbon Dioxide BUN Creatinine Glucose Calcium Magnesium Total Bilirubin AST ALT Alkaline Phosphatase Troponin I < 0.03
[2018-06-09] MEDS ORDERED: Ranolazine 500 MG TAB.ER.12H PO ONE (10:03)
[2018-06-09] MEDS ORDERED: Isosorbide MONOnitrate (24 HR) 30 MG TAB.ER.24H PO SCH (10:15)
[2018-06-09] MEDS ORDERED: Perflutren Lipid Microsphere 1.3 ML in 0.9 % Sodium Chloride 8.7 ML IVP ONE (10:34)
[2018-06-09 11:44] VITALS: BP 130/73
--- NOTE | 2018-06-09 13:41 | Discharge Summary ---
- NOTES TO OUTPATIENT PROVIDER Notes to Outpatient Provider: Presented with complaints of chest pain and shortness of breath on exertion seen by cardiology and will follow up with Dr. Sweet in outpatient setting Ranexa increased and Imvidalr added continue with aspirin and statin and beta mandie will give prescription of sublingual nitr oglycerin. Did have shortness of breath chest x-ray was obtained which did show left pleural effusion versus thickening with left basilar consolidation or scar- patient has not been short of breath during this admission sats are stable no leukocytosis no fevers no cough-continue to monitor as outpatient Orders not resulted at time of discharge: Pending orders 06/09/18 06:00 ECG 12 lead ECG [ECG] AM 0600 Date of Encounter: 06/09/18 Time of Encounter: 13:38 - Discharge Diagnosis (1) Chest pain Priority: Primary Status: Acute Qualifiers: Chest pain type: chest pain due to myocardial ischemia Ischemic chest pain type: stable angina pectoris Qualified Code(s): I20.8 - Other forms of angina pectoris (2) CAD (coronary artery disease) Priority: Secondary Status: Chronic Qualifiers: Coronary Disease-Associated Artery/Lesion type: [place] artery [place] vs. transplanted heart: [place] heart Associated angina: with stable angina Qualified Code(s): I25.118 - Atherosclerotic heart disease of [place] coronary artery with other forms of angina pectoris (3) Atelectasis of left lung Priority: Secondary Status: Acute Hospital course: Mr. Isaacs is a 68 year old male past medical history of CAD status post 4 the CABG in 2007 PCI in 2008 systolic CHF/I CMP status post ICD insertion- EF has since recovered, hypertension, hyperlipidemia, prior tobacco abuse, lung cancer status post wedge resection presented with complaints of chest pain and dyspnea which developed while taking yesterday. He became very short of breath and then developed sharp midsternal chest pain. He did take 2 nitroglycerin with relief. He does have a history of chronic exertional chest pain he was evaluated by his fiberglass roving winder in office and was advised to go to the emergency department. Troponins were negative 3 EKG was paced rhythm with no ischemic changes chest x-ray did show possible left basilar atelectasis or pneumonia PA and lateral were obtained left pleural effusion versus thickening with the left basilar consolidation or scar. He does not have any shortness of breath at this time sats are stable afebrile and leukocytosis-(reviewed CXR with Dr العراقي) etiology did increase Ranexa place patient on Imdur and we will give prescription of nitroglycerin-currently he is chest pain-free and his hemodynamically stable. I did advise patient to follow-up with fiberglass roving winder as well as primary care provider since these providers know him best and can adjust medications accordingly. Patient verbalized understanding and he is ready for discharge Discharge discussed with: patient - Time Spent with Patient Total time spent providing and/or coordinating discharge services: - Discharge Medications Prescriptions: Nitroglycerin 0.4 mg SL Q5MIN PRN 30 Days tab.subl PRN Reason: Chest Pain Isosorbide MONOnitrate (24 HR) [Imdur] 30 mg PO DAILY 30 Days tab.er.24h Ranolazine [Ranexa] 1,000 mg PO BID #60 tab.er.12h Home Medications: Albuterol Sulfate [Ventolin Hfa] 2 puff IH Q6H PRN 01/20/18 [History] Amlodipine Besylate 10 mg PO DAILY 01/20/18 [History] Aspirin 325 mg PO DAILY 01/20/18 [History] Atorvastatin Calcium 80 mg PO DAILY 01/20/18 [History] Esomeprazole Magnesium [Nexium] 40 mg PO DAILY 01/20/18 [History] Tamsulosin HCl [Flomax] 0.4 mg PO DAILY 01/20/18 [History] Carvedilol [Coreg] 6.25 mg PO BID 06/08/18 [History] Isosorbide MONOnitrate (24 HR) [Imdur] 30 mg PO DAILY 30 Days tab.er.24h 06/09/18 [Rx] Nitroglycerin 0.4 mg SL Q5MIN PRN 30 Days tab.subl 06/09/18 [Rx] Ranolazine [Ranexa] 1,000 mg PO BID #60 tab.er.12h 06/09/18 [Rx] Allergies/Adverse Reactions: Allergy/AdvReac Type Severity Reaction Status Date / Time ezetimibe AdvReac See Verified 01/20/18 07:46 Comments Date of admission: 06/08/18 19:52 Primary care physician: Ana Laura Pelayo Consults: 06/08/18 21:30 Consult to Physician [CONS] Routine Consulting Provider: Marcelina Wallace Reason for Consult: chest pain; CAD; h/o CABG/PCI/stents Call Completed: No Discharging clinician: Zoey Arreguin Anticipated date of discharge: 06/09/18 - Constitutional Vitals: Temp Pulse Resp BP Pulse Ox 97.4 F L 61 16 130/73 96 06/09/18 11:43 06/09/18 11:43 06/09/18 11:43 06/09/18 11:43 06/09/18 11:43 General appearance: Present: cooperative, A&O X 3, pleasant, no acute distress, answers questions appropriately Exam: currently chest pain free - Head Head exam: Present: atraumatic, normocephalic - Eye Eye exam: Present: PERRL, conjuntiva pink, sclera anicteric Pupils: Present: PERRL - Neck Neck exam general surgery: Present: supple, trachea midline. Absent: lymphadenopathy - Respiratory Respiratory exam: Present: CTAB. Absent: accessory muscle use, rales, rhonchi, wheezes - Cardiovascular Cardiovascular exam: Present: RRR, +S1, +S2. Absent: diastolic murmur, gallop, rubs, systolic murmur - GI/Abdominal GI/Abdominal exam: Present: normal bowel sounds, soft, no peritoneal signs. Absent: distended, tenderness - Extremities Exam Extremities exam: Present: warm, radial pulses palpable and symmetrical. Absent: calf tenderness, cyanotic, pedal edema - Neurological Exam Neurological exam: Present: CN II-XII intact, oriented X3, no focal deficits. Absent: pronater drift, facial droop, speech deficit - Skin Skin exam: Present: dry, intact - Patient Status Disposition: Home, Self-Care Condition: Fair Functional capacity at discharge: independent ambulation - Discharge Instructions Instructions: Chest Pain (DC) Follow Up With: Ana Laura Pelayo [Primary Care Provider] - - Diet and Activity Activity: increase activity as tolerated Diet: advance to your usual diet
--- NOTE | 2018-06-09 16:57 | Electrocardiograph Report ---
[place] [id number] Test Date: 2018-06-08 Pat Name: Dionisio Isaacs Department: EXAM11 Room: 3B37 Gender: M Supervisor [employer]: : 1950 Requested By: Caity Pagan Order Number: [id number] Reading MD: Marcelina Wallace Measurements Intervals [place] Rate: 79 P: [place]: 197 QRS: -31 QRSD: 111 T: 125 QT: 387 QTc: 444 Interpretive Statements Atrial-paced rhythm LVH with secondary repolarization abnormality Inferior infarct, old Anterior infarct, old Electronically Signed On 06-09-2018 16:56:26 EST by Marcelina Wallace
--- NOTE | 2018-06-09 17:01 | Electrocardiograph Report ---
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
== END 2018-06-09 16:15 | disposition home or self-care (01) ==
LOC: EMEROOARM 17:06 → 3BNU 17:06
PROVIDERS: ADMIT Pediatrics; ATTEND Pediatrics